=== PATIENT | female | born 1965 | race Caucasian/White ===

== ENCOUNTER → 2016-04-28 09:17 | Outpatient (CLI) | payer BC | END | disposition home or self-care (01) | LOC: D.CT 09:17 | DX: J98.4 Other disorders of lung (principal) ==

== ENCOUNTER → 2016-08-23 09:44 | Outpatient (CLI) | payer BC | END | disposition home or self-care (01) | LOC: D.CT 08-16 09:30 | DX: J98.4 Other disorders of lung (principal) ==

== ENCOUNTER → 2016-10-21 08:47 | Outpatient (CLI) | payer BC | END | disposition home or self-care (01) | LOC: D.CT 08:47 | DX: J98.4 Other disorders of lung (principal) ==

== ENCOUNTER → 2017-02-25 09:13 | Outpatient (CLI) | payer BC ==
[~2017-02-25 09:13] MED LIST: AMBIEN10 MG PO; DULERA 200 MCG8.8 GM INH; KLONOPIN1 MG PO; LEVOTHYROXINE175 MCG PO; LEVOTHYROXINE50 MCG PO; LIPITOR10 MG PO; MERIBIN5 MG PO; PRINIVIL10 MG PO; PROAIR HFA8.5 GM INH; SINGULAIR10 MG PO
[2017-03-08 07:15] VITALS: BMI 25.4
--- NOTE | 2017-03-14 09:15 | EC ---
PATIENT:LELAND KEYS DATE OF SERVICE: 02/25/17 SEX: F MEDICAL RECORD: [id number] DATE OF : 65 LOCATION:D.[facility] AGE OF PATIENT: 51 ADMISSION DATE: 02/25/17 REFERRING PHYSICIAN: INTERPRETING PHYSICIAN: EUNICE GARZA MD ECHOCARDIOGRAM REPORT ECHO CHARGES 4 ECHO COMPLETE CLINICAL DIAGNOSIS: CHEST PAIN/SOB/PERICARDIAL PAIN ECHOCARDIOGRAPHIC MEASUREMENTS (adult normal given) AC root (d.<3.7cm) 3.0 cm LV Septum d (<1.2 cm> 1.3 cm Valve Excursion 1.7 cm LV Septum (systole) 1.4 cm Left Atria (s.<4.0cm> 3.5 cm LVPW d(<1.2cm) 1.3 cm RV (d.<2.3cm) 3.0 cm LVPW (sytole) 1.5 cm LV diastole(<5.6CM) 4.2 cm MV E-F(>70mm/sec) cm LV systole 2.9 cm LVOT Diameter 1.8 cm MV exc.(>10mm) 1.4 cm Est.ejection fraction (50-75%) % Pericardial Effusion N DOPPLER: LVIT cm/sec A 51.0 cm/sec E 74.0 cm/sec LA cm/sec RVSP 16 mmHg LVOT 112 cm/sec AOP1/2T m/s Asc. Ao 145 cm/sec RVOT 59 cm/sec RA cm/sec PA 103 cm/sec AV Gradient Peak 8.38 mmHg AV Mean 4.58 mmHg AV Area 3.6 cm MV Gradient Peak 2.32 mmHg MV Mean 0.92 mmHg MV Area cm COMMENTS: Habilitative Interventionist: Farooq WHITE [employer] Associate: Delilah Garza TAPE# PACS DATE OF SERVICE: 02/25/2017 PROCEDURE: Transthoracic echocardiogram. FINDINGS: 1. The left ventricle has mild concentric left ventricular hypertrophy. Inflow characteristics are normal. There is no obvious regional wall motion abnormalities. 2. The mitral valve is grossly normal with no obvious mitral regurgitation. 3. The aortic valve is grossly normal. ECHOCARDIOGRAM REPORT [id number] LELAND KEYS 4. The left atrium is normal size, normal function. 5. The right ventricle is normal size, normal function. 6. The right atrium is normal size, normal function. 7. The tricuspid valve and pulmonic valve are normal and the right ventricular systolic pressure is normal. CONCLUSION: This is overall normal echocardiogram. TRANSINT:[id number] Voice Confirmation ID: [id number] DOCUMENT ID: [id number] EUNICE GARZA MD at 0915 CC: [id number] DICTATION DATE: 03/01/17 1144 HOOKER MACHINE TENDER: 03/01/17 1241 DEP CLI 02/25/17 [address] [place] [address]
== END | disposition home or self-care (01) ==
LOC: D.ECHO 09:13
DX: R07.9 Chest pain, unspecified (principal); R06.02 Shortness of breath; R07.2 Precordial pain

== ENCOUNTER 2017-03-08 06:34 | Outpatient (CLI) | payer BC ==
[~2017-03-08] VITALS: Ht 175.3 cm; Wt 78.2 kg
--- NOTE | ~2017-03-08 | HEMODYNAMI ---
PATIENT:LELAND KEYS MEDICAL RECORD: [id number] : 65 LOCATION:D.CAT ADMISSION DATE: 03/08/17 Generatedon:03/08/20179:22 Patient name: LELAND KEYS Patient #: [id number] SSN: : 1965 Date of study: 03/08/2017 Page: Of Hemodynamic Procedure Report Patient Data Patient Demographics Procedure consent was obtained First Name: LELAND Gender: Female Last Name: LUDMILA : 1965 [facility] Initial: J Age: 51 year(s) Patient #: [id number] Race: Unknown Additional ID: [id number] Contact details Address: [place] [address] State: [place] City: [place] Zip code: [address] Past Medical History Allergies: No known allergies Admission Admission Data Admission Date: 03/08/2017 Admission Time: 6:34 Lab Results Lab Result Date: 03/08/2017 Lab Result Time: 0:00 Biochemistry Name Units Result Min Max BUN mg/dl 11 --(-*--)-- 7 18 Creatinine mg/dl 1 --(--*-)-- 0.6 1.3 CBC Name Units Result Min Max Hemoglobin g/dl 15.6 --(--*-)-- 13.5 17.5 Procedure Procedure Types Cath Procedure Diagnostic Procedure C [facility] w/Coronaries Miscellaneous Procedures Moderate Sedation up to 15 minutes Procedure Description Procedure Date Procedure Date: 03/08/2017 Procedure Start Time: 9:04 Procedure End Time: 9:19 Procedure Staff Name Function Maurisio Gamino MD Performing Physician Brenna Copeland RT Scrub Otto Rivera RN Nurse Alize Lizarraga RT Monitor Procedure Data Cath Procedure Fluoroscopy Diagnostic fluoroscopy Total fluoroscopy Time: 1.2 time: 1.2 min min Diagnostic fluoroscopy Total fluoroscopy dose: 251 dose: 251 mGy mGy Contrast Material Contrast Material Type Amount (ml) Isovue 300 48 Entry Location Entry Primary Successful Side Size Upsize Upsize Entry Closure Succes sful Closure Location (Fr) 1 (Fr) 2 (Fr) Remarks Device Remarks Femoral Right 5 Fr Exoseal artery Estimated blood loss: 10 ml Diagnostic catheters Device Type Used For End Catheter Placement Cordis 5Fr JL 4.0 Procedure Catheter (MP) Cordis 5Fr 3DRC Catheter Procedure (MP) Cordis 5Fr Pigtail Ventriculography Catheter (MP) Procedure Complications No complications Procedure Medications Medication Administration Route Dosage Oxygen NC 2 l/min Heparin Flush Bag added to field 2 bags (1000units/500ml NS) 0.9% NaCl I.V. 100 ml/hr Radial Cocktail added to field 1 syringe (Verapomil 2mg/Nitro 400mcg/Heparin 1500units) Fentanyl I.V. 50 mcg Versed I.V. 1 mg Fentanyl I.V. 50 mcg Versed I.V. 1 mg Versed I.V. 1 mg Versed I.V. 1 mg Fentanyl I.V. 50 mcg Hemodynamics Rest Heart Rate: 60 (bpm) Pressure Samples Time Site Value (mmHg) Purpose Heart Use Rate(bpm) 9:15 LV 106/-3,16 EDP 60 Gradients Valve Time Site Site Mean SEP/DFP Peak To Heart Use 1 2 (mmHg) (sec/min) Peak Rate (mmHg) (bpm) Aortic 9:16 LV AO 59 Snapshots Pre Cath Intra NCS Post Cath Vital Signs Time Heart Resp SPO2 etCO2 NIBP Rhythm Pain Sedation Rate (ipm) (%) (mmHg) (mmHg) Status Level (bpm) 8:27:52 61 17 99 38.5 110/69(86) NSR 0 (11) 10(A) , No pain 8:31:56 57 19 99 38.5 104/69(89) NSR 0 (11) 10(A) , No pain 8:35:58 58 16 100 35.5 103/70(79) NSR 0 (11) 10(A) , No pain 8:39:59 55 17 99 46.1 105/67(78) NSR 0 (11) 10(A) , No pain 8:44:03 53 19 98 44.5 102/64(74) NSR 0 (11) 10(A) , No pain 8:48:05 53 18 97 44.5 104/65(73) NSR 0 (11) 10(A) , No pain 8:52:07 57 20 99 43.8 105/69(79) NSR 0 (11) 10(A) , No pain 8:56:10 55 18 99 40 109/66(76) NSR 0 (11) 10(A) , No pain 9:00:34 56 19 99 43.1 101/62(79) NSR 0 (11) 10(A) , No pain 9:04:38 57 18 97 42.3 110/63(73) NSR 0 (11) 9(A) , No pain 9:08:38 60 18 100 42.3 109/78(93) NSR 0 (11) 9(A) , No pain 9:12:39 62 18 99 43.8 118/73(92) NSR 0 (11) 9(A) , No pain 9:16:47 60 18 98 46.1 107/64(80) NSR 0 (11) 9(A) , No pain 9:19:54 59 20 96 43.8 106/69(81) NSR 0 (11) 10(A) , No pain Medications Time Medication Route Dose Verified Delivered Reason Notes Effe ctiveness by by 8:28:32 Oxygen NC 2 l/min Maurisio Otto Per Hanny Rivera RN physician 8:28:41 Heparin Flush added 2 bags Maurisio Otto used for Bag to Hanny Rivera RN procedure (1000units/500ml field WRIGHT NS) 8:28:57 0.9% NaCl I.V. 100 Maurisio Otto Per ml/hr Hanny Rivera RN physician 8:29:06 Radial Cocktail added 1 Maurisio Otto used for (Verapomil to syringe Hanny Rivera gm 2mg/Nitro field WRIGHT 400mcg/Heparin 1500units) 8:57:45 Fentanyl I.V. 50 mcg Maurisio Otto for Hanny Rivera RN sedation 8:57:52 Versed I.V. 1 mg Maurisio Otto for Hanny Rivera RN sedation 8:59:51 Fentanyl I.V. 50 mcg Maurisio Otto for Hanny Rivera RN sedation 8:59:54 Versed I.V. 1 mg Maurisio Otto for Hanny Rivera RN sedation 9:02:56 Versed I.V. 1 mg Maurisio Otto for Hanny Rivera RN sedation 9:05:40 Versed I.V. 1 mg Maurisio Menjivar for Hanny Rivera RN sedation 9:08:10 Fentanyl I.V. 50 mcg Maurisio Menjivar for Hanny Rivera RN sedation Procedure Log Time Note 7:43:47 Diagnostic Cath Status : Elective 7:44:42 Otto Rivera RN sent for patient. Start room use. 7:44:43 Time tracking: Regular hours 7:44:48 Plan of Care:Hemodynamics will remain stable., Cardiac rhythm will remain stable., Comfort level will be maintained., Respiratory function will remain adequate., Patient/ family verbilizes understanding of procedure., Procedure tolerated without complication., Recovers from procedure without complications.. 8:15:50 Patient received from Pre/Post Procedure Room to CCL 2 Alert and oriented. Tansferred to table in Supine position. 8:17:13 Warm blankets applied, and kt hugger turned on for patient comfort. 8:17:14 Correct patient and procedure confirmed by team. 8:17:16 Signed procedure consent form obtained from patient. 8:17:32 H&P Date Dictated: 02/28/2017 Within 30 days and on chart., H&P Addendum completed by physician on day of procedure. (MUST COMPLETE FOR ALL OUTPATIENTS). 8:17:34 Pre-procedure instructions explained to patient. 8:17:36 Family in waiting room. 8:17:38 Patient NPO since Midnight. 8:17:44 Patient allergic to No known allergies 8:17:50 Is the patient allergic to Iodine/contrast media? No. 8:17:52 Is patient on blood thinner?No 8:17:53 Patient diabetic? No. 8:18:02 Snore? No 8:18:03 Sleep apnea? No 8:18:13 Airway obstruction? Yes Asthma, COPD 8:18:17 Dentures? No ? 8:18:25 IV patent on arrival in left forearm with 0.9% NaCl at [facility]. 8:24:09 Lab Result : Creatinine 1 mg/dl 8:24:09 Lab Result : BUN 11 mg/dl 8:24:09 Lab Result : Hemoglobin 15.6 g/dl 8:24:13 Lab results completed and on chart. 8:26:46 Vital chart was started 8:28:32 Oxygen 2 l/min NC was administered by Otto Rivera RN; Per physician; 8:28:41 Heparin Flush Bag (1000units/500ml NS) 2 bags added to field was administered by Otto Rivera RN; used for procedure; 8:28:57 0.9% NaCl 100 ml/hr I.V. was administered by Otto Rivera RN; Per physician; 8:29:02 Right Radial & Right Groin area was prepped with chlora-prep and draped in sterile fashion 8:29:03 Alarms reviewed by R. N. 8:29:04 Sharps counted by scrub and verified by R.N. 8:29:06 Radial Cocktail (Verapomil 2mg/Nitro 400mcg/Heparin 1500units) 1 syringe added to field was administered by Otto Rivera RN; used for procedure; 8:29:06 Physician paged 8:39:55 Zero performed for pressure channel P1 8:52:39 Physician arrived 8:57:19 --------ALL STOP TIME OUT------ 8:57:20 Final Timeout: patient, procedure, and site verified with staff and physician. All members of the team are in agreement. 8:57:23 Right Radial & Right Groin site verified by team. 8:57:25 Sedation plan: IV Moderate Sedation 8:57:44 Use device set Radial Dx 8:57:45 Fentanyl 50 mcg I.V. was administered by Otto Rivera RN; for sedation; 8:57:45 Acist Syringe opened to sterile field. 8:57:45 Medline Cath Pack opened to sterile field. 8:57:46 Bag Decanter opened to sterile field. 8:57:46 Terumo 6Fr Slender Glidesheath opened to sterile field. 8:57:47 St Gabriele 260cm J .035 wire opened to sterile field. 8:57:47 Acist Hand Control opened to sterile field. 8:57:48 Acist Manifold opened to sterile field. 8:57:48 Tegaderm 4 x 4 opened to sterile field. 8:57:49 MBrace Wrist Support opened to sterile field. 8:57:52 Versed 1 mg I.V. was administered by Otto Rivera RN; for sedation; 8:59:51 Fentanyl 50 mcg I.V. was administered by Otot Rivera RN; for sedation; 8:59:54 Versed 1 mg I.V. was administered by Otto Rivera RN; for sedation; 9:02:56 Versed 1 mg I.V. was administered by Otto Rivera RN; for sedation; 9:03:40 Procedure started. 9:03:40 Full Disclosure recording started 9:04:55 Local anesthetic to right radial artery with Lidocaine 2% by Maurisio Gamino MD.INITIAL ACCESS ONLY 9:05:40 Versed 1 mg I.V. was administered by Otto Rivera RN; for sedation; 9:07:54 NO RADIAL 9:08:10 Fentanyl 50 mcg I.V. was administered by Otto Rivera RN; for sedation; 9:08:10 Local anesthetic to right femoral artery with Lidocaine 2% by Maurisio Gamino MD.ADDITIONAL ACCESS 9:08:29 Access obtained with 4Fr micropunture. 9:08:37 Cook 4Fr Micropuncture Set ([id number]) opened to sterile field. 9:08:53 Use device set Multipack Set 9:08:55 Diagnostic Infinity 5Fr Multipack catheter opened to sterile field. 9:09:14 Terumo 5Fr Harvel Sheath opened to sterile field. 9:09:31 A 5 Fr sheath was inserted into the Right Femoral artery 9:11:51 A Cordis 5Fr JL 4.0 Catheter (MP) was advanced over the wire and used for Procedure. 9:11:54 LCA angiography performed. 9:13:06 Catheter removed. 9:13:13 A Cordis 5Fr 3DRC Catheter (MP) was advanced over the wire and used for Procedure. 9:14:28 RCA angiography performed. 9:14:31 Catheter removed. 9:14:40 A Cordis 5Fr Pigtail Catheter (MP) was advanced over the wire and used for Ventriculography. 9:15:06 Cordis 5Fr Exoseal opened to sterile field. 9:16:33 Catheter removed. 9:16:56 Sheath removed intact; hemostasis achieved with Exoseal to the Right Femoral artery. 9:17:32 Procedure ended.(Physican Out) 9:17:43 Fluoroscopy time 01.20 minutes. 9:17:47 Fluoroscopy dose: 251 mGy 9:17:47 Flurop Dose total: 251 9:18:13 Contrast amount:Isovue 300 48ml. 9:18:14 Sharps counted by scrub and verified by R.N. 9:18:17 Insertion/operative site no bleeding no hematoma. 9:18:21 Post procedure rhythm: unchanged. 9:18:24 Estimated blood loss: 10 ml 9:18:26 Post procedure instruction explained to patient.Patient verbalizes understanding. 9:18:36 Procedure type changed to Cath procedure, Diagnostic procedure, LHC, LHC w/Coronaries, Miscellaneous Procedures, Moderate Sedation up to 15 minutes 9:18:37 Procedure and supply charges have been captured, reviewed, submitted and are correct. 9:19:06 Procedure Complication : No complications 9:19:12 Vital chart was stopped 9:19:25 See physician's report for complete and final results. 9:19:40 Report given to Pre/Post Procedure Room. 9:19:45 Patient transfered to Pre/Post Procedure Room with Stretcher. 9:19:48 Procedure ended. 9:19:48 Full Disclosure recording stopped 9:19:56 End room use (Document Last) Device Usage Item Name Manufacture Quantity Catalog Hospital Part Current Minim al Lot# / Number Charge Number Stock Stock Serial# Code Acist Syringe Acist 1 [id number] 845521 521638 775094 20 [employer] Inc Medline Cath Cardinal 1 [id number] 313191 58694 584784 5 Pack Health Bag Decanter Microtek 1 2001S 699842 65985 503102 5 Medical Inc. Terumo 6Fr Terumo 1 [id number] 895341 298656 38[address] Gabriele 1 666319 418031 675078 441419 30 J .035 wire Acist Hand Acist 1 64044 553504 684993 417877 5 Control Medical Systems Inc Acist Acist 1 07779 727917 956800 814418 5 Manifold Medical Systems Inc Tegaderm 4 x 3M 1 1626W 249669 857631 437389 5 4 MBrace Wrist Advanced 1 140-0250-00 242825 28445 751924 5 Support Vascular Dynamics Cook 4Fr Mojeek 1 [id number] 164086 039364 037122 5 Micropuncture Set ([id number]) Diagnostic Cardinal 1 [id number] 259781 20180 722884 30 Infinity 5Fr Health Multipack catheter Terumo 5Fr Terumo 1 [id number] 896498 014632 516922 40 Harvel Sheath Cordis 5Fr JL Cardinal 1 615208 5 4.0 Catheter Health (MP) Cordis 5Fr Cardinal 1 [id number] 5 3DRC Catheter Health (MP) Cordis 5Fr Cardinal 1 554114 5 Pigtail Health Catheter (MP) Cordis 5Fr Cardinal 1 EX500 244775 834721 093516 10 [facility] Health Signature Audit [place] Stage Time Signature Unsigned Intra-Procedure 03/08/2017 Alize Lizarraga 9:22:14 AM RT(R) Signatures Monitor : Alize Lizarraga Signature : RT Date : Time : [address] [address]
[2017-03-08] MEDS ORDERED: LEVOTHYROXINE175 MCG PO (07:06)
[2017-03-08] MEDS ORDERED: MERIBIN5 MG PO (07:07)
[2017-03-08] MEDS ORDERED: PROAIR HFA8.5 GM INH (07:07)
[2017-03-08] MEDS ORDERED: DULERA 200 MCG8.8 GM INH (07:07)
[2017-03-08] MEDS ORDERED: AMBIEN10 MG PO (07:08)
[2017-03-08] MEDS ORDERED: KLONOPIN1 MG PO (07:08)
[2017-03-08] MEDS ORDERED: SINGULAIR10 MG PO (07:08)
[2017-03-08] MEDS ORDERED: LEVOTHYROXINE50 MCG PO (07:09)
[2017-03-08] MEDS ORDERED: LIPITOR10 MG PO (07:09)
[2017-03-08] MEDS ORDERED: PRINIVIL10 MG PO (07:10)
[2017-03-08 07:15] VITALS: BP 119/79; Ht 175.3 cm; Wt 78.2 kg
[2017-03-08 07:26] LABS: BASOPHILS 0.3 % (0-2); HEMATOCRIT 44.8 % (36.0-48.0); HEMOGLOBIN 15.6 g/dL (12-16); IMMATURE GRANULOCYTES 0.1 % (0-5); LYMPHOCYTES 33.5 % (15-50); MCH 31.9 pg (26.0-34.0); MCHC 34.8 g/dL (31.0-37.0); MCV 91.6 fL (80.0-100.0); MEAN PLATELET VOLUME 10.2 fL (7.4-10.4); MONOCYTES 6.2 % (2-11); NEUTROPHILS 56.9 % (40-80); PLATELET COUNT 171 10x3/uL (130-400); RBC 4.89 10x6/uL (4.00-5.40); RDW 12.2 % (11.5-14.5); WBC 7.6 10x3/uL (4.8-10.8)
[2017-03-08 07:34] LABS: CALCIUM 8.6 mg/dL (8.5-10.1); CARBON DIOXIDE 26.9 mmol/L (21.0-32.0); POTASSIUM - SERUM 3.9 mmol/L (3.5-5.1)
--- NOTE | 2017-03-08 09:44 | NUR ---
0935 RECEIVED PT FROM MANAGER MINING. PT IS DROWSY, DENIES ANY C/O. IV PATENT AND INFUSING PER ORDERS. DRESSING TO RIGHT WRIST IS CDI, EXOSEAL TO RIGHT GROIN IS CDI, AREA IS SOFT AND NONTENDER. PEDAL PULSES PALPABLE, FOOT IS WARM, CAP REFILL IS BRISK. FAMILY AT BEDSIDE. PT INSTRUCTED TO KEEP RIGHT LEG STRAIGHT AND HEAD TO PILLOW AND VERBALIZES UNDERSTANDING. SINUS GARRETT WITH RATE OF 58, DENIES ANY C/O CHEST PAIN. WILL CONTINUE TO MONITOR.
--- NOTE | 2017-03-08 10:01 | NUR ---
PT DENIES ANY C/O. DRESSING TO RIGHT GROIN IS CDI, PEDAL PULSES PALPABLE. VSS, SB, RATE 56. CALL LIGHT IN REACH, FAMILY AT BEDSIDE.
--- NOTE | 2017-03-08 10:27 | NUR ---
PT REQUESTED ANOTHER SPRITE AND THIS SERVED. DENIES ANY C/O. DRESSING TO RIGHT GROIN IS CDI, AREA SOFT AND NONTENDER. PEDAL PULSES PALPABLE. DRESSING RIGHT WRIST IS CDI. CALL LIGHT IN REACH. WILL CONTINUE TO MONITOR.
--- NOTE | 2017-03-08 11:26 | NUR ---
HOB ELEVATED. DRESSING TO RIGHT GROIN IS CDI, AREA IS SOFT AND NONTENDER. SANDWICH SERVED. PT DENIES ANY C/O AT THIS TIME. FRIEND AT BEDSIDE, CALL LIGHT IN REACH.
--- NOTE | 2017-03-08 12:11 | NUR ---
1145 DRESSING TO RIGHT GROIN REMAINS CDI, AREA IS SOFT AND NONTENDER. PT JULIANE SANDWICH WITH NO C/O. IV DC'D WITH CATH INTACT AND PT IS DRESSING FOR DC TO HOME. 1200 PT HAS DRESSED FOR DC. HAS VOIDED QS. DRESSING REMAINS CDI. DC INSTRUCTIONS REVIEWED AND PT VERBALIZES UNDERSTANDING. PT ESCORTED TO PRIVATE AUTO VIA WC BY NURSE WITH FRIEND DRIVING HER HOME. PT DENIES ANY C/O UPON DC.
== END 2017-03-08 12:00 | disposition home or self-care (01) ==
LOC: D.CATH 06:34
PROVIDERS: Internal Medicine Cardiovascular Disease
DX: R94.30 Abnormal result of cardiovascular function study, unspecified (principal); R07.9 Chest pain, unspecified; Z01.812 Encounter for preprocedural laboratory examination

== ENCOUNTER 2017-05-22 03:29 | Emergency (ER) | payer BC ==
[2017-03-08 07:15] VITALS: BMI 25.4
[2017-05-22 03:56] LABS: COLOR YELLOW (YELLOW)
[2017-05-22 03:57] LABS: APPEARANCE CLEAR (CLEAR); BILIRUBIN NEGATIVE (NEGATIVE); GLUCOSE NEGATIVE (NEGATIVE); KETONE NEGATIVE (NEGATIVE); NITRITE NEGATIVE (NEGATIVE); PROTEIN NEGATIVE (NEGATIVE); UROBILINOGEN NORMAL (NORMAL)
[2017-05-22 04:14] LABS: BASOPHILS 0.2 % (0-2); EOSINOPHILS 1.1 % (0-7); HEMATOCRIT 45.1 % (36.0-48.0); HEMOGLOBIN 15.3 g/dL (12-16); IMMATURE GRANULOCYTES 0.1 % (0-5); LYMPHOCYTES 11.2 % (15-50); MCH 32.5 pg (26.0-34.0); MCHC 33.9 g/dL (31.0-37.0); MCV 95.8 fL (80.0-100.0); MEAN PLATELET VOLUME 9.8 fL (7.4-10.4); MONOCYTES 6.8 % (2-11); NEUTROPHILS 80.6 % (40-80); PLATELET COUNT 161 10x3/uL (130-400); RBC 4.71 10x6/uL (4.00-5.40); RDW 13.4 % (11.5-14.5); WBC 10.1 10x3/uL (4.8-10.8)
[2017-05-22 04:32] LABS: ALBUMIN 4.1 g/dL (3.4-5.0); ALKALINE PHOSPHATASE 73 U/L (46-116); ALT (SGPT) 44 U/L (10-68); CALC OSMOLALITY 276 mosm/kg (275-300); CARBON DIOXIDE 29.1 mmol/L (21.0-32.0); CHLORIDE - SERUM 103 mmol/L (98-107); CREATININE - SERUM 1.1 mg/dL (0.6-1.3); GLUCOSE 106 mg/dL (74-106); POTASSIUM - SERUM 4.2 mmol/L (3.5-5.1); PROTEIN - SERUM 7.3 g/dL (6.4-8.2); SODIUM 138 mmol/L (136-145); UREA NITROGEN 15 mg/dL (7-18); eGFR NON AFRICAN AMERICAN 55 mL/min (90-120)
[2017-05-22 04:41] LABS: PRO BNP 43 pg/mL (0-125); THYROID STIMULATING HORMONE 2.81 uIU/mL (0.36-3.74)
[2017-05-22 04:42] LABS: TROPONIN-I < 0.017 ng/mL (0.000-0.060)
== END 2017-05-22 04:57 | disposition home or self-care (01) ==
LOC: D.ER 03:29
PROVIDERS: Family Medicine
DX: J11.1 Influenza due to unidentified influenza virus with other respiratory manifestations (principal); J44.9 Chronic obstructive pulmonary disease, unspecified

== ENCOUNTER 2017-08-09 14:45 | Outpatient (CLI) | payer BC ==
[2017-03-08 07:15] VITALS: BMI 25.4
== END 2017-08-09 14:46 | disposition home or self-care (01) ==
LOC: D.MAMMO 14:45
DX: Z12.31 Encounter for screening mammogram for malignant neoplasm of breast (principal)

== ENCOUNTER → 2018-06-26 08:09 | Outpatient (CLI) | payer BC ==
[2017-03-08 07:15] VITALS: BMI 25.4
== END | disposition home or self-care (01) ==
LOC: D.US 08:09
PROVIDERS: ATTEND Clinical Nurse Specialist Family Health
DX: N64.52 Nipple discharge (principal)

== ENCOUNTER → 2019-01-22 08:23 | Outpatient (CLI) | payer BC ==
[2017-03-08 07:15] VITALS: BMI 25.4
== END | disposition home or self-care (01) ==
LOC: D.CT 01-16 14:00
PROVIDERS: ATTEND Internal Medicine Pulmonary Disease
DX: J98.4 Other disorders of lung (principal)

== ENCOUNTER 2019-05-17 09:51 | Day surgery (SDC) | payer BC, MEDICARE ==
[~2019-05-17] VITALS: Ht 175.3 cm; Wt 77.1 kg
[2019-05-17 10:38] LABS: HEMATOCRIT 45.7 % (36.0-48.0); MCH 30.1 pg (26.0-34.0); MCHC 32.8 g/dL (31.0-37.0); MCV 91.8 fL (80.0-100.0); MEAN PLATELET VOLUME 9.8 fL (7.4-10.4); RBC 4.98 10x6/uL (4.00-5.40); RDW 14.6 % (11.5-14.5); WBC 7.1 10x3/uL (4.8-10.8)
[2019-05-17] MEDS ORDERED: REQUIP3 MG PO (11:40)
[2019-05-17] MEDS ORDERED: CELEXA20 MG PO (11:41)
[2019-05-17 11:43] VITALS: Ht 175.3 cm; Wt 77.1 kg
[2019-05-17] MEDS ORDERED: HYDROCODON-ACE1 EA10 PO (14:11)
--- NOTE | 2019-05-20 10:02 | OP ---
PATIENT NAME: LELAND KEYS MEDICAL RECORD: [id number] :65 LOCATION:[facility] ADMISSION DATE: SURGEON: MICHAEL NOBLE MD DATE OF OPERATION: 05/17/2019 PREOPERATIVE DIAGNOSIS: Comminuted fracture of the right 5th proximal phalanx. POSTOPERATIVE DIAGNOSIS: Comminuted fracture of the right 5th proximal phalanx. PROCEDURE: External fixation of right fifth finger fracture, monorail. SURGEON: Michael Noble MD FAMILY SERVICES COORDINATOR: Brayden Stacy. INTRAOPERATIVE COMPLICATIONS: None. SUMMARY OF PATHOLOGIC FINDINGS: The idea of pinning or plating this was very quickly given up upon given the amount of comminution seen today. Micro external fixator was utilized. OPERATIVE SUMMARY IN DETAIL: After obtaining the appropriate preoperative orthopedic surgery consent as well as anesthetic consultation, evaluation, and clearance, the patient was brought to the operating room and placed on the operating room table in supine position. After adequate general laryngeal mask airway was administered, tourniquet was placed on the proximal aspect of the right lower extremity. Right lower extremity was then prepped and draped in routine sterile fashion. At this point, the appropriate timeout was taken and agreed upon by all given the patient's unique identifiers. The tourniquet was not deflated. Multiple attempts at closed reduction were successful in that it could be reduced closed; however, the fragmentation did not allow for percutaneous pinning. For this reason, the micro ex-fix set was brought out and pins were placed in the proximal and distal aspect proximal and distal to the fracture and the fracture was held in an anatomic position while the apex pins were tightened to the rail. At this point there was a small displacement. This was then held in place with a percutaneous fracture reduction clamps and a third apex pin was placed across the fracture. This was viewed in multiple planes and seemed to be relatively anatomic without disturbing the fracture callus. Of note that the MCP and the PIP joint were left free, was only the phalanx that was pinned in good overall alignment. Having completed this, sterile dressings were applied. Volar splint was applied. The patient was awakened and taken to the recovery room in stable condition. All final needle and sponge counts were correct. TRANSINT:[id number] Voice Confirmation ID: [id number] DOCUMENT ID: [id number] MICHAEL NOBLE MD at 1002 CC: [id number] DICTATION DATE: 05/17/19 1414 HEAVY EQUIPMENT TECHNICIAN: 05/17/19 2004 [facility] SD[facility] 05/17/[address] [facility] [address] [place] [address]
== END 2019-05-17 16:00 | disposition home or self-care (01) ==
LOC: D.OPS 09:51
PROVIDERS: Anesthesiology; ATTEND Orthopaedic Surgery
DX: S62.616A Displaced fracture of proximal phalanx of right little finger, initial encounter for closed fracture (principal); X58.XXXA Exposure to other specified factors, initial encounter; R05 Cough; J45.909 Unspecified asthma, uncomplicated; J98.4 Other disorders of lung

== ENCOUNTER 2019-06-21 05:25 | Day surgery (SDC) | payer BC, MEDICARE ==
[2019-06-20 09:37] LABS: HEMATOCRIT 41.8 % (36.0-48.0); MCH 31.4 pg (26.0-34.0); MCHC 33.5 g/dL (31.0-37.0); MCV 93.7 fL (80.0-100.0); RBC 4.46 10x6/uL (4.00-5.40); RDW 14.4 % (11.5-14.5); WBC 7.9 10x3/uL (4.8-10.8)
[~2019-06-21] VITALS: Ht 175.3 cm; Wt 77.1 kg
[~2019-06-21 05:25] MED LIST changes: +CELEXA20 MG PO; +DECADRON4 MG; +HYDROCODON-ACE1 EA10 PO; +REQUIP3 MG PO
[2019-06-21] MEDS ORDERED: LEVOXYL25 MCG PO (05:42)
[2019-06-21] MEDS ORDERED: METHOTREXATE2.5 MG PO (05:43)
[2019-06-21] MEDS ORDERED: LYRICA150 MG PO (05:45)
[2019-06-21] MEDS ORDERED: VITAMIN D10000 UNI1 PO (05:45)
[2019-06-21] MEDS ORDERED: CELEXA20 MG PO (05:46)
[2019-06-21] MEDS ORDERED: CYMBALTA60 MG PO (05:47)
[2019-06-21] MEDS ORDERED: PROAIR HFA8.5 G1 INH (05:48)
[2019-06-21] MEDS ORDERED: RESTORIL15 MG PO (05:48)
[2019-06-21] MEDS ORDERED: FOLIC ACID1 MG PO (05:48)
[2019-06-21 05:52] VITALS: BP 124/84; Ht 175.3 cm; Wt 77.1 kg
[2019-06-21] MEDS ORDERED: HYDROCODON-ACE1 EA10 PO (07:56)
--- NOTE | 2019-06-25 08:42 | OP ---
PATIENT NAME: LELAND KEYS MEDICAL RECORD: [id number] :65 LOCATION:[facility] ADMISSION DATE: SURGEON: MICHAEL NOBLE MD DATE OF OPERATION: 06/21/2019 PREOPERATIVE DIAGNOSIS: Retained external fixator of the right small finger. POSTOPERATIVE DIAGNOSIS: Retained external fixator of the right small finger. PROCEDURE: Removal of ex-fix under anesthesia. SURGEON: Michael Noble MD ANESTHESIA: TIVA with a local block. INTRAOPERATIVE COMPLICATIONS: None. SUMMARY OF PATHOLOGIC FINDINGS: Upon removal of the ex-fix, the proximal phalangeal fracture that was highly comminuted seemed to be very stable with the appropriate amount of stress. The patient did have swelling of the finger; however, she maintained good metacarpophalangeal range of motion as well as proximal phalangeal range of motion. OPERATIVE SUMMARY IN DETAIL: After obtaining the appropriate preoperative orthopedic surgery consent as well as anesthetic consultation, evaluation and clearance, the patient was brought to the operating room and placed on the operating table in a supine position. After adequate general TIVA anesthesia was administered, the patient's right upper extremity was prepped and draped in routine sterile fashion. Serial and sequential removal of the apex pins as well as the monorail external fixator, that is the mini ex-fix from [employer] was removed. Under fluoroscopic evaluation, the patient's fracture was stable. The patient's range of motion was overall in good condition. Sterile dressings were applied. The patient was awakened and taken back to outpatient in stable condition. All final needle and sponge counts were correct. TRANSINT:[id number] Voice Confirmation ID: [id number] DOCUMENT ID: [id number] MICHAEL NOBLE MD at 0842 CC: [id number] DICTATION DATE: 06/21/19 0759 PI/SENIOR RESEARCH ASSOCIATE: 06/21/19 1116 [facility] 06/21/[address] [address]
== END 2019-06-21 08:37 | disposition home or self-care (01) ==
LOC: D.OPS 05:25
PROVIDERS: Anesthesiology; ATTEND Orthopaedic Surgery
DX: S62.646D Nondisplaced fracture of proximal phalanx of right little finger, subsequent encounter for fracture with routine healing (principal); J44.9 Chronic obstructive pulmonary disease, unspecified; E07.9 Disorder of thyroid, unspecified